=== PATIENT | male | born 1965 | race Caucasian/White ===

== ENCOUNTER 2018-02-28 05:38 | Emergency (ER) | payer BC ==
[~2018-02-28] VITALS: Ht 175.3 cm; Wt 84.1 kg
[~2018-02-28 05:38] MED LIST: ASPIRIN 32325 MG/TAB PO; NEXIUM 20MG20 MG PO; TOPROL XL 50MG50 MG PO
[2018-02-28 05:44] VITALS: TEMP 97.4
[2018-02-28 06:12] LABS: HEMATOCRIT 47.6 % (42.0-52.0); HEMOGLOBIN 15.6 g/dl (13.5-18.0); MEAN CELL VOLUME 89 fl (80.0-100.0); MEAN CORPUSCULAR HEMOGLOBIN 29 pg (27.0-31.0); MEAN CORPUSCULAR HGB CONC 33 g/dl (33.0-37.0); MEAN PLATELET VOLUME 9.4 fl (7.4-10.4); PLATELET COUNT 271 K/mm3 (130-400); RED BLOOD COUNT 5.34 M/mm3 (4.20-5.60); REDCELL DISTRIBUTION WIDTH-CV 13.1 % (11.5-14.5)
[2018-02-28 06:26] LABS: ALBUMIN 4.4 gm/dL (3.5-5.0); BILIRUBIN,TOTAL 0.8 mg/dL (0.0-1.0); CALCIUM 9.5 mg/dL (8.4-10.2); CREATININE, serum 1.4 mg/dL (0.66-1.25); POTASSIUM 4.7 mmol/L (3.4-5.0); TOTAL PROTEIN 8.3 gm/dL (6.4-8.2)
[2018-02-28 06:47] LABS: COLLECTION METHOD CLEAN CATCH
[2018-02-28 06:56] LABS: LYMPHOCYTE 20 % (20.0-51.0); NEUTROPHILS 66 % (42.0-75.2)
[2018-02-28 06:59] LABS: PLATELET ESTIMATE NORMAL (NORMAL)
[2018-02-28 07:08] LABS: MUCOUS Present /lpf; PH 6 (5-8); SQUAMOUS EPITHELIAL None Seen /hpf; URINE APPEARANCE Clear; URINE BACTERIA None Seen /hpf; URINE BILIRUBIN Negative (NEGATIVE); URINE BLOOD 3+ (NEGATIVE); URINE COLOR Yellow; URINE GLUCOSE Negative (NEGATIVE); URINE KETONE Negative (NEGATIVE); URINE LEUKOCYTE ESTERASE Negative (NEGATIVE); URINE NITRATE Negative (NEGATIVE); URINE PROTEIN(semi-quant) Negative (NEGATIVE); URINE UROBILINOGEN Negative (NEGATIVE)
[2018-02-28] MEDS ORDERED: PERCOCET 325 MG1 TA2 PO (07:34)
[2018-02-28] MEDS ORDERED: FLOMAX 0.40.4 MG/CAP PO (07:34)
[2018-02-28] MEDS ORDERED: ZOFRAN ODT8 MG PO (07:34)
[2018-02-28 08:54] VITALS: BP 153/111; PULSE 93
== END 2018-02-28 09:23 | disposition home or self-care (01) ==
LOC: COL.ER 05:38
PROVIDERS: Emergency Medicine
DX: N23 Unspecified renal colic (principal); N20.1 Calculus of ureter; I10 Essential (primary) hypertension; F17.210 Nicotine dependence, cigarettes, uncomplicated; N17.9 Acute kidney failure, unspecified; Z79.82 Long term (current) use of aspirin; Z87.442 Personal history of urinary calculi
CPT/HCPCS: J1885; J2270; J2405; J7030

== ENCOUNTER 2018-03-01 14:37 | Emergency (ER) | payer BC ==
[~2018-03-01] VITALS: Ht 175.3 cm; Wt 88.6 kg
[~2018-03-01 14:37] MED LIST changes: +FLOMAX 0.40.4 MG/CAP PO; +PERCOCET 325 MG1 TA2 PO; +ZOFRAN ODT8 MG PO
[2018-03-01 14:40] VITALS: TEMP 98.1
[2018-03-01 15:01] LABS: BASO % 0.3 % (0.0-2.0); EOS # 0.3 (0.0-0.7); EOS % 2.3 % (0-4.0); GRAN # 9.4 (1.4-6.5); HEMATOCRIT 44.7 % (42.0-52.0); LYMPH # 1.7 (1.2-3.4); LYMPH % 13.2 % (20.0-51.0); MEAN CELL VOLUME 88 fl (80.0-100.0); MEAN CORPUSCULAR HEMOGLOBIN 30 pg (27.0-31.0); MEAN CORPUSCULAR HGB CONC 34 g/dl (33.0-37.0); MEAN PLATELET VOLUME 9.5 fl (7.4-10.4); MONO # 1.2 (0.1-0.6); MONO % 9.8 % (1.7-9.3); PLATELET COUNT 290 K/mm3 (130-400); RED BLOOD COUNT 5.06 M/mm3 (4.20-5.60); REDCELL DISTRIBUTION WIDTH-CV 12.6 % (11.5-14.5)
[2018-03-01 15:12] LABS: ALBUMIN 4.3 gm/dL (3.5-5.0); BILIRUBIN,TOTAL 0.8 mg/dL (0.0-1.0); CALCIUM 9.5 mg/dL (8.4-10.2); CREATININE, serum 1.21 mg/dL (0.66-1.25); POTASSIUM 5.2 mmol/L (3.4-5.0); TOTAL PROTEIN 8.5 gm/dL (6.4-8.2)
[2018-03-01 15:53] LABS: COLLECTION METHOD CLEAN CATCH
[2018-03-01 16:00] LABS: PH 6 (5-8); SQUAMOUS EPITHELIAL None Seen /hpf; URINE APPEARANCE Clear; URINE BACTERIA None Seen /hpf; URINE BILIRUBIN Negative (NEGATIVE); URINE BLOOD 1+ (NEGATIVE); URINE COLOR Straw; URINE GLUCOSE Negative (NEGATIVE); URINE KETONE Negative (NEGATIVE); URINE LEUKOCYTE ESTERASE Negative (NEGATIVE); URINE NITRATE Negative (NEGATIVE); URINE PROTEIN(semi-quant) Negative (NEGATIVE); URINE RBC 0-2 /hpf; URINE UROBILINOGEN Negative (NEGATIVE)
[2018-03-01 16:51] VITALS: BP 154/94; PULSE 99
== END 2018-03-01 16:52 | disposition home or self-care (01) ==
LOC: COL.ER 14:37
PROVIDERS: Emergency Medicine
DX: N20.1 Calculus of ureter (principal); I10 Essential (primary) hypertension; F17.210 Nicotine dependence, cigarettes, uncomplicated
CPT/HCPCS: J1885; J7030

== ENCOUNTER 2019-03-29 17:02 | Emergency (ER) | payer BC ==
[~2019-03-29] VITALS: Ht 172.7 cm; Wt 94.1 kg
[2019-03-29 17:15] VITALS: TEMP 98.2
[2019-03-29 18:19] LABS: BASO # 0.1 (0.0-0.2); BASO % 0.7 % (0.0-2.0); EOS # 0.2 (0.0-0.7); EOS % 2.3 % (0-4.0); GRAN # 3.7 (1.4-6.5); GRAN % 50.4 % (42.2-75.2); HEMATOCRIT 42.7 % (42.0-52.0); HEMOGLOBIN 13.5 g/dl (13.5-18.0); LYMPH # 2.5 (1.2-3.4); LYMPH % 33.2 % (20.0-51.0); MEAN CELL VOLUME 89 fl (80.0-100.0); MEAN CORPUSCULAR HEMOGLOBIN 28 pg (27.0-31.0); MEAN CORPUSCULAR HGB CONC 32 g/dl (33.0-37.0); MEAN PLATELET VOLUME 9.2 fl (7.4-10.4); MONO % 13.1 % (1.7-9.3); PLATELET COUNT 259 K/mm3 (130-400); RED BLOOD COUNT 4.81 M/mm3 (4.20-5.60); REDCELL DISTRIBUTION WIDTH-CV 13.9 % (11.5-14.5)
[2019-03-29 18:28] LABS: PROTHROMBIN TIME 11.1 SECONDS (9.7-12.8)
[2019-03-29 18:34] LABS: BILIRUBIN,TOTAL 0.4 mg/dL (0.0-1.0); CALCIUM 9.3 mg/dL (8.4-10.2); CREATININE, serum 1.04 (0.66-1.25); POTASSIUM 4.2 mmol/L (3.4-5.0); TOTAL PROTEIN 7.5 gm/dL (6.4-8.2)
[2019-03-29] MEDS ORDERED: ALTACE 10MG TAB10 MG PO ×2 (21:26→21:39)
[2019-03-29] MEDS ORDERED: CEPHALEXIN500 M1 PO (21:38)
[2019-03-29] MEDS ORDERED: NORCO 325 MG-51 TAB PO (21:38)
[2019-03-29 21:56] VITALS: BP 155/94; PULSE 90
== END 2019-03-29 21:55 | disposition home or self-care (01) ==
LOC: COL.ER 17:02
PROVIDERS: Nurse Practitioner
DX: M79.662 Pain in left lower leg (principal); I10 Essential (primary) hypertension; K21.9 Gastro-esophageal reflux disease without esophagitis; Z87.891 Personal history of nicotine dependence

== ENCOUNTER 2019-12-29 14:05 | Emergency (ER) | payer BC ==
[~2019-12-29] VITALS: Ht 175.3 cm; Wt 94.1 kg
[~2019-12-29 14:05] MED LIST changes: +ALTACE 10MG TAB10 MG PO; +CEPHALEXIN500 M1 PO; +NORCO 325 MG-51 TAB PO
[2019-12-29 14:10] VITALS: TEMP 98.5
[2019-12-29] MEDS ORDERED: CEPHALEXIN500 M1 PO (16:31)
[2019-12-29 17:00] VITALS: BP 135/81; PULSE 98
== END 2019-12-29 17:00 | disposition home or self-care (01) ==
LOC: COL.ER 14:05
DX: S61.422A Laceration with foreign body of left hand, initial encounter (principal); I10 Essential (primary) hypertension; Z87.891 Personal history of nicotine dependence; W25.XXXA Contact with sharp glass, initial encounter; Y92.009 Unspecified place in unspecified non-institutional (private) residence as the place of occurrence of the external cause
CPT/HCPCS: Q4021

== ENCOUNTER 2020-04-04 15:45 | Outpatient (RCR) | payer BC | END 2020-05-03 14:37 | disposition home or self-care (01) | LOC: WSOT 15:45 | DX: Z98.890 Other specified postprocedural states (principal) ==